=== PATIENT | male | born 1955 | race African-American/Black ===

== ENCOUNTER 2021-08-02 06:10 | Inpatient (IN) | payer OTHER, MEDICAID ==
[~2021-08-02] VITALS: Ht 185.4 cm; Wt 86.9 kg
[2021-08-02 07:24] LABS: Basophils # (auto) 0 10 ^3/uL (0-0.2); Basophils % (auto) 0.6 % (0.0-2.0); Eosinophils # (auto) 0 10 ^3/uL (0-0.8); Eosinophils % (auto) 0.1 % (0.0-7.0); Hematocrit 29.4 % (41.0-53.0); Lymphocytes # (auto) 0.7 10 ^3/uL (0.4-5.4); Lymphocytes % (auto) 12.1 % (10.0-50.0); Mean Corpuscular Hemoglobin 32.2 pg (28.0-32.0); Mean Corpuscular Volume 94.8 fL (80.0-100.0); Monocytes # (auto) 1.1 10 ^3/uL (0-1.3); Monocytes % (auto) 17.7 % (0.0-12.0); Neutrophils # (auto) 4.2 10 ^3/uL (1.6-8.6); Neutrophils % (auto) 69.5 % (37.0-80.0); Nucleated Red Blood Cells % 0.1 %; Red Cell Distribution Width 14.9 % (11.8-14.3)
[2021-08-02 07:38] LABS: Calcium 9.2 mg/dL (8.5-10.1); Magnesium 3.2 mg/dL (1.6-2.6); Potassium 5.1 mmol/L (3.5-5.1)
[2021-08-02 07:41] LABS: BUN/Creatinine Ratio 4.2; Bilirubin, Total 0.5 mg/dL (0.2-1.0); Total Protein 7.7 g/dL (6.4-8.2)
[2021-08-02] MEDS ORDERED: DEXTROSE (25%) 10 ML SYRG IV ONE (08:15)
[2021-08-02] MEDS ORDERED: MORPHINE SULFATE INJ 2 MG/ml SYRG IV ONE (10:30)
[2021-08-02] MEDS ORDERED: MORPHINE SULFATE INJ 2 MG/ml SYRG IV PRN ×2 (10:45)
[2021-08-02] MEDS ORDERED: NITROGLYCERIN 0.4 MG SL TAB SL PRN (10:45)
[2021-08-02 11:25] VITALS: BP 149/90
[2021-08-02] MEDS ORDERED: KETOROLAC TROMETH 30 MG/ML 1ML VIAL IV ONE (11:30)
[2021-08-02 11:46] LABS: Magnesium 3.1 mg/dL (1.6-2.6)
[2021-08-02 11:55] LABS: CRP High Sensitivity 5.69 mg/dL (< 0.3)
[2021-08-02 11:59] LABS: Thyroid Stimulating Hormone 0.27 uIU/mL (0.358-3.74)
[2021-08-02] MEDS: DexAMETHasone SOD PHOS 10MG/1ML VIAL INJ IV SCH (15:21)
[2021-08-02 17:00] VITALS: BP 152/88
[2021-08-02] MEDS: ALBUTEROL SULF HFA 90MCG INH 200DOSE IN PRN (19:08)
[2021-08-02] MEDS: ONDANSETRON HCL 4 MG/2 ML VIAL IV PRN (20:03)
[2021-08-02 22:00] VITALS: BP 145/92
[2021-08-03 05:00] VITALS: BP 148/85
[2021-08-03 05:45] LABS: Basophils # (auto) 0 10 ^3/uL (0-0.2); Basophils % (auto) 0.5 % (0.0-2.0); Eosinophils # (auto) 0 10 ^3/uL (0-0.8); Eosinophils % (auto) 0.1 % (0.0-7.0); Hematocrit 28.7 % (41.0-53.0); Hemoglobin 9.6 g/dL (13.5-17.5); Lymphocytes # (auto) 0.8 10 ^3/uL (0.4-5.4); Lymphocytes % (auto) 16.1 % (10.0-50.0); Mean Corpuscular Hemoglobin 32.5 pg (28.0-32.0); Mean Corpuscular Hgb Conc. 33.5 g/dL (32.0-36.0); Mean Corpuscular Volume 96.9 fL (80.0-100.0); Monocytes # (auto) 0.5 10 ^3/uL (0-1.3); Monocytes % (auto) 8.6 % (0.0-12.0); Neutrophils # (auto) 3.9 10 ^3/uL (1.6-8.6); Neutrophils % (auto) 74.7 % (37.0-80.0); Red Blood Cells 2.96 10^6/uL (4.5-5.90); Red Cell Distribution Width 15.6 % (11.8-14.3); White Blood Cell 5.3 10^3/uL (4.4-10.8)
[2021-08-03 06:05] LABS: Albumin 3.2 g/dL (3.4-5.0); Calcium 9.6 mg/dL (8.5-10.1)
[2021-08-03 06:07] LABS: BUN/Creatinine Ratio 4.7
[2021-08-03 06:09] LABS: Bilirubin, Total 0.5 mg/dL (0.2-1.0); Total Protein 7.7 g/dL (6.4-8.2)
[2021-08-03 06:16] LABS: Potassium 5.9 mmol/L (3.5-5.1)
[2021-08-03] MEDS ORDERED: SODIUM CHL 0.9% 1000 ML BAG XX ONE (07:00)
[2021-08-03 09:00] VITALS: BP 135/81
[2021-08-03] MEDS: DexAMETHasone SOD PHOS 10MG/1ML VIAL INJ IV SCH (10:01)
[2021-08-03] MEDS: AZITHROMYCIN 500MG/ 250ML 250 ML IV SCH (10:02)
[2021-08-03 13:00] VITALS: BP 145/82
[2021-08-03] MEDS: SODIUM ZIRCONIUM CYCL 10 GM PAK PO SCH ×2 (14:01→22:08)
[2021-08-03 17:00] VITALS: BP 139/78
[2021-08-03] MEDS ORDERED: EPOETIN ALFA-EPBX 10,000 UNIT/1ML VIAL SC ONE (21:00)
[2021-08-03 21:45] VITALS: BP 157/103
[2021-08-03] MEDS: hydrALAZINE HCL 20 MG/ML VL IV PRN (22:07)
[2021-08-04] MEDS: ONDANSETRON HCL 4 MG/2 ML VIAL IV PRN ×3 (00:01→11:05)
[2021-08-04 05:36] VITALS: BP 149/102
[2021-08-04] MEDS: SODIUM ZIRCONIUM CYCL 10 GM PAK PO SCH ×2 (06:23→14:00)
[2021-08-04 08:30] VITALS: BP 137/93
[2021-08-04] MEDS: CHOLECALCIFEROL (VITD3) 2,000 UNIT CAP/TAB PO SCH (10:00)
[2021-08-04] MEDS: ZINC SULFATE 220mg CAP or TAB PO SCH (10:00)
[2021-08-04] MEDS: AZITHROMYCIN 500MG/ 250ML 250 ML IV SCH (10:34)
[2021-08-04] MEDS: DexAMETHasone SOD PHOS 10MG/1ML VIAL INJ IV SCH (10:34)
[2021-08-04] MEDS: ASCORBIC ACID 1,000 MG TAB PO SCH (10:35)
[2021-08-04 11:07] LABS: Basophils # (auto) 0 10 ^3/uL (0-0.2); Basophils % (auto) 0.3 % (0.0-2.0); Eosinophils # (auto) 0 10 ^3/uL (0-0.8); Hematocrit 32.3 % (41.0-53.0); Hemoglobin 11.1 g/dL (13.5-17.5); Lymphocytes # (auto) 0.8 10 ^3/uL (0.4-5.4); Lymphocytes % (auto) 11.8 % (10.0-50.0); Mean Corpuscular Hemoglobin 32.8 pg (28.0-32.0); Mean Corpuscular Hgb Conc. 34.4 g/dL (32.0-36.0); Mean Corpuscular Volume 95.3 fL (80.0-100.0); Monocytes # (auto) 0.7 10 ^3/uL (0-1.3); Monocytes % (auto) 9.7 % (0.0-12.0); Neutrophils # (auto) 5.6 10 ^3/uL (1.6-8.6); Neutrophils % (auto) 78.2 % (37.0-80.0); Nucleated Red Blood Cells % 0.3 %; Red Blood Cells 3.39 10^6/uL (4.5-5.90); Red Cell Distribution Width 14.8 % (11.8-14.3); White Blood Cell 7.2 10^3/uL (4.4-10.8)
[2021-08-04 11:15] LABS: Albumin 3.6 g/dL (3.4-5.0); BUN/Creatinine Ratio 4.7; Calcium 9.4 mg/dL (8.5-10.1)
[2021-08-04 11:17] LABS: Bilirubin, Total 0.6 mg/dL (0.2-1.0); Total Protein 8.6 g/dL (6.4-8.2)
[2021-08-04 12:30] VITALS: BP 155/92
[2021-08-04] MEDS ORDERED: LORazepam 2MG/ML-1ML VIAL IV ONE (12:45)
[2021-08-04 16:34] VITALS: BP 138/75
[2021-08-04] MEDS ORDERED: EPOETIN ALFA-EPBX 10,000 UNIT/1ML VIAL SC ONE (21:00)
[2021-08-04 21:40] VITALS: BP 143/87
[2021-08-04 21:57] LABS: Urine Bacteria NONE SEEN /hpf (None Seen); Urine Blood Negative /uL (Negative); Urine Specific Gravity 1.015 (1.001-1.035); Urine WBC 4 /hpf (0 - 3)
[2021-08-04 22:14] LABS: Alcohol, Urine < 3.0 mg/dL (0-10); Amphetamine Screen, Urine NEGATIVE (NEGATIVE); Barbiturate Scree,Urine NEGATIVE (NEGATIVE); Benzodiazephine Screen, Urine NEGATIVE (NEGATIVE); Cannabinoid Screen, Urine NEGATIVE (NEGATIVE); Cocaine Screen, Urine NEGATIVE (NEGATIVE); Opiate Scree,Urine NEGATIVE (NEGATIVE); Phencyclidine Screen, Urine NEGATIVE (NEGATIVE)
[2021-08-05] VITALS (7 sets, daily range): BP systolic 142–161; BP diastolic 86–100
[2021-08-05] MEDS: ONDANSETRON HCL 4 MG/2 ML VIAL IV PRN (05:45)
[2021-08-05] MEDS: hydrALAZINE HCL 20 MG/ML VL IV PRN (05:45)
[2021-08-05] MEDS: ALBUTEROL SULF HFA 90MCG INH 200DOSE IN PRN ×2 (06:51→22:53)
[2021-08-05] MEDS: CHOLECALCIFEROL (VITD3) 2,000 UNIT CAP/TAB PO SCH (09:31)
[2021-08-05] MEDS: ASCORBIC ACID 1,000 MG TAB PO SCH (09:31)
[2021-08-05] MEDS: ZINC SULFATE 220mg CAP or TAB PO SCH (09:31)
[2021-08-05] MEDS: DexAMETHasone SOD PHOS 10MG/1ML VIAL INJ IV SCH (09:31)
[2021-08-05] MEDS: AZITHROMYCIN 500MG/ 250ML 250 ML IV SCH (09:31)
[2021-08-05] MEDS ORDERED: LORazepam 2MG/ML-1ML VIAL IM PRN (12:00)
[2021-08-05] MEDS: PANTOPRAZOLE 40 MG/10 ML VIAL INJ IV SCH ×2 (14:30→21:43)
[2021-08-06 05:00] VITALS: BP 158/97
[2021-08-06] MEDS: ALBUTEROL SULF HFA 90MCG INH 200DOSE IN PRN ×2 (06:35→19:24)
[2021-08-06] MEDS ORDERED: SODIUM CHL 0.9% 1000 ML BAG XX ONE (07:00)
[2021-08-06 07:41] VITALS: BP 120/72
[2021-08-06] MEDS: AZITHROMYCIN 500MG/ 250ML 250 ML IV SCH (08:30)
[2021-08-06] MEDS: ZINC SULFATE 220mg CAP or TAB PO SCH (08:31)
[2021-08-06] MEDS: PANTOPRAZOLE 40 MG/10 ML VIAL INJ IV SCH ×3 (08:31→21:18)
[2021-08-06] MEDS: CHOLECALCIFEROL (VITD3) 2,000 UNIT CAP/TAB PO SCH (08:32)
[2021-08-06] MEDS: ASCORBIC ACID 1,000 MG TAB PO SCH (08:32)
[2021-08-06] MEDS ORDERED: DexAMETHasone SOD PHOS 10MG/1ML VIAL INJ IV SCH (10:00)
[2021-08-06] MEDS ORDERED: PANTOPRAZOLE 40 MG TAB PO SCH (10:00)
[2021-08-06] MEDS: HALOPERIDOL LACTATE 5 MG/ML INJ VIAL IM PRN (10:57)
[2021-08-06 13:00] VITALS: BP 128/70
[2021-08-06 14:36] LABS: Basophils # (auto) 0.2 10 ^3/uL (0-0.2); Basophils % (auto) 2.8 % (0.0-2.0); Eosinophils # (auto) 0 10 ^3/uL (0-0.8); Hematocrit 31.9 % (41.0-53.0); Hemoglobin 10.9 g/dL (13.5-17.5); Lymphocytes # (auto) 0.9 10 ^3/uL (0.4-5.4); Lymphocytes % (auto) 11.3 % (10.0-50.0); Mean Corpuscular Hemoglobin 31.8 pg (28.0-32.0); Mean Corpuscular Hgb Conc. 34.1 g/dL (32.0-36.0); Mean Corpuscular Volume 93.3 fL (80.0-100.0); Monocytes % (auto) 12.7 % (0.0-12.0); Neutrophils # (auto) 5.7 10 ^3/uL (1.6-8.6); Neutrophils % (auto) 73.2 % (37.0-80.0); Nucleated Red Blood Cells % 0.2 %; Red Blood Cells 3.42 10^6/uL (4.5-5.90); Red Cell Distribution Width 14.4 % (11.8-14.3); White Blood Cell 7.8 10^3/uL (4.4-10.8)
[2021-08-06 14:43] LABS: INR 1.1 (0.9-1.15)
[2021-08-06 14:45] LABS: Calcium 10.2 mg/dL (8.5-10.1); Magnesium 3.5 mg/dL (1.6-2.6); Potassium 4.2 mmol/L (3.5-5.1)
[2021-08-06 14:48] LABS: BUN/Creatinine Ratio 5.4
[2021-08-06 14:56] LABS: Folate (Folic Acid) 5.99 ng/mL (5.38-24)
[2021-08-06] MEDS ORDERED: ALBUMIN 25% 100 ML IV PRN (15:15)
[2021-08-06] MEDS ORDERED: IOHEXOL 300 MG/ML 100ML BOTTLE IJ ONE (15:20)
[2021-08-06 16:40] VITALS: BP 139/82
[2021-08-06 22:00] VITALS: BP 121/77
[2021-08-07] MEDS: HALOPERIDOL LACTATE 5 MG/ML INJ VIAL IM PRN (04:53)
[2021-08-07 05:00] VITALS: BP 150/81
[2021-08-07] MEDS: AZITHROMYCIN 500MG/ 250ML 250 ML IV SCH (09:46)
[2021-08-07] MEDS: PANTOPRAZOLE 40 MG/10 ML VIAL INJ IV SCH ×2 (09:47→21:34)
[2021-08-07] MEDS: B-COMPLEX W/ C & FOLIC ACID(NEPHROVITE TAB) PO SCH (09:47)
[2021-08-07] MEDS: ZINC SULFATE 220mg CAP or TAB PO SCH (09:47)
[2021-08-07] MEDS: DexAMETHasone 4 MG TAB PO SCH (09:47)
[2021-08-07] MEDS: CHOLECALCIFEROL (VITD3) 2,000 UNIT CAP/TAB PO SCH (09:48)
[2021-08-07] MEDS: ASCORBIC ACID 1,000 MG TAB PO SCH (09:48)
[2021-08-07] MEDS ORDERED: AZITHROMYCIN 250 MG TAB PO SCH (10:00)
[2021-08-07 10:11] LABS: Basophils # (auto) 0 10 ^3/uL (0-0.2); Basophils % (auto) 0.2 % (0.0-2.0); Eosinophils # (auto) 0 10 ^3/uL (0-0.8); Eosinophils % (auto) 0.2 % (0.0-7.0); Hematocrit 33.6 % (41.0-53.0); Hemoglobin 11.3 g/dL (13.5-17.5); Lymphocytes # (auto) 0.9 10 ^3/uL (0.4-5.4); Lymphocytes % (auto) 13.1 % (10.0-50.0); Mean Corpuscular Hemoglobin 31.4 pg (28.0-32.0); Mean Corpuscular Hgb Conc. 33.7 g/dL (32.0-36.0); Mean Corpuscular Volume 93.3 fL (80.0-100.0); Monocytes # (auto) 0.9 10 ^3/uL (0-1.3); Neutrophils # (auto) 4.9 10 ^3/uL (1.6-8.6); Neutrophils % (auto) 72.5 % (37.0-80.0); Nucleated Red Blood Cells % 0.1 %; Red Cell Distribution Width 14.6 % (11.8-14.3); White Blood Cell 6.7 10^3/uL (4.4-10.8)
[2021-08-07 10:25] LABS: INR 1.13 (0.9-1.15)
[2021-08-07 10:30] LABS: Calcium 9.5 mg/dL (8.5-10.1); Magnesium 3.2 mg/dL (1.6-2.6); Potassium 4.2 mmol/L (3.5-5.1)
[2021-08-07 10:34] LABS: BUN/Creatinine Ratio 4.6
[2021-08-07 22:00] VITALS: BP 119/78
[2021-08-08] MEDS ORDERED: SODIUM CHL 0.9% 1000 ML BAG XX ONE (07:00)
[2021-08-08 09:00] VITALS: BP 155/91
[2021-08-08] MEDS: ASCORBIC ACID 1,000 MG TAB PO SCH (11:31)
[2021-08-08] MEDS: ZINC SULFATE 220mg CAP or TAB PO SCH (11:31)
[2021-08-08] MEDS: DexAMETHasone 4 MG TAB PO SCH (11:31)
[2021-08-08] MEDS: B-COMPLEX W/ C & FOLIC ACID(NEPHROVITE TAB) PO SCH (11:32)
[2021-08-08] MEDS: PANTOPRAZOLE 40 MG/10 ML VIAL INJ IV SCH ×2 (11:34→21:54)
[2021-08-08] MEDS: AZITHROMYCIN 500MG/ 250ML 250 ML IV SCH (11:35)
[2021-08-08] MEDS: CHOLECALCIFEROL (VITD3) 2,000 UNIT CAP/TAB PO SCH (11:41)
[2021-08-08 12:00] VITALS: BP 165/101
[2021-08-08] MEDS ORDERED: ALBUAER3 IN (14:02)
[2021-08-08] MEDS ORDERED: CHOL20007 PO (14:02)
[2021-08-08] MEDS ORDERED: ZINC220T6 PO (14:02)
[2021-08-08] MEDS ORDERED: AZIT500T PO (14:02)
[2021-08-08] MEDS ORDERED: ASCO500T11 PO (14:02)
[2021-08-08] MEDS ORDERED: PANT40TA2 PO (14:02)
[2021-08-08] MEDS ORDERED: DEX4T PO (14:02)
[2021-08-08] MEDS: hydrALAZINE HCL 20 MG/ML VL IV PRN (14:38)
[2021-08-08 17:00] VITALS: BP 165/102
[2021-08-08] MEDS ORDERED: cloNIDine HCL 0.1 MG TAB PO PRN (17:00)
[2021-08-08] MEDS ORDERED: CLON0.2T PO (18:22)
[2021-08-08] MEDS ORDERED: GABA300C10 PO (18:23)
[2021-08-08] MEDS ORDERED: METO-159 PO (18:24)
[2021-08-08] MEDS ORDERED: BACL10TA PO (18:24)
[2021-08-08] MEDS ORDERED: TERA5CAP42 PO (18:25)
[2021-08-08] MEDS ORDERED: ASPI-543 PO (18:25)
[2021-08-08] MEDS ORDERED: ROPI0.254 PO (18:26)
[2021-08-08] MEDS ORDERED: HYDR10TA26 PO (18:27)
[2021-08-08] MEDS ORDERED: APIX2.5T PO (18:28)
[2021-08-08] MEDS ORDERED: ROSU10TA16 PO (18:28)
[2021-08-08] MEDS ORDERED: OXY5T GT (18:29)
[2021-08-08] MEDS ORDERED: IOHEXOL 350 MG/ML 100ML IJ ONE (18:39)
[2021-08-08 21:45] VITALS: BP 158/97
[2021-08-09 04:57] VITALS: BP 133/88
[2021-08-09 05:57] LABS: Potassium 4.6 mmol/L (3.5-5.1)
[2021-08-09 06:05] LABS: BUN/Creatinine Ratio 5.4; Calcium 9.1 mg/dL (8.5-10.1)
[2021-08-09] MEDS: PANTOPRAZOLE 40 MG/10 ML VIAL INJ IV SCH (09:52)
[2021-08-09] MEDS: ZINC SULFATE 220mg CAP or TAB PO SCH (09:52)
[2021-08-09] MEDS: CHOLECALCIFEROL (VITD3) 2,000 UNIT CAP/TAB PO SCH (09:53)
[2021-08-09] MEDS: B-COMPLEX W/ C & FOLIC ACID(NEPHROVITE TAB) PO SCH (09:53)
[2021-08-09] MEDS: ASCORBIC ACID 1,000 MG TAB PO SCH (09:53)
[2021-08-09] MEDS: DexAMETHasone 4 MG TAB PO SCH (09:53)
[2021-08-09] MEDS ORDERED: DEX4T PO ×2 (10:49→10:50)
[2021-08-09] MEDS ORDERED: METOPROLOL TARTRATE 25 MG TAB PO ONE (11:00)
[2021-08-09 13:00] VITALS: BP 149/95
[2021-08-09 14:00] VITALS: BP 148/100
[2021-08-09] MEDS ORDERED: METOPROLOL TARTRATE 50 MG TAB PO SCH (22:00)
== END 2021-08-09 15:40 | disposition home or self-care (01) | DRG 177 ==
LOC: EDBD 06:10 → ER 06:10 → TELE 10:41 → TELE-EAST 16:24
PROVIDERS: ADMIT Registered Nurse; ATTEND Internal Medicine
PROC: 5A1D70Z Performance of Urinary Filtration, Intermittent, Less than 6 Hours Per Day (ICD-10-PCS; 2021-08-04)
PROC: 5A1D70Z Performance of Urinary Filtration, Intermittent, Less than 6 Hours Per Day (ICD-10-PCS; 2021-08-06)
PROC: 05H933Z Insertion of Infusion Device into Right Brachial Vein, Percutaneous Approach (ICD-10-PCS; 2021-08-06)
PROC: B54MZZA Ultrasonography of Right Upper Extremity Veins, Guidance (ICD-10-PCS; 2021-08-06)
PROC: 5A1D70Z Performance of Urinary Filtration, Intermittent, Less than 6 Hours Per Day (ICD-10-PCS; principal; 2021-08-09)
DX: U07.1 COVID-19 (principal); N18.6 End stage renal disease; I21.A1 Myocardial infarction type 2; I50.43 Acute on chronic combined systolic (congestive) and diastolic (congestive) heart failure; J12.82 Pneumonia due to coronavirus disease 2019; J96.01 Acute respiratory failure with hypoxia; G92.8 Other toxic encephalopathy; E46 Unspecified protein-calorie malnutrition; I13.2 Hypertensive heart and chronic kidney disease with heart failure and with stage 5 chronic kidney disease, or end stage renal disease; D63.1 Anemia in chronic kidney disease; E55.9 Vitamin D deficiency, unspecified; R00.0 Tachycardia, unspecified; E78.5 Hyperlipidemia, unspecified; E87.5 Hyperkalemia; I48.0 Paroxysmal atrial fibrillation; G62.9 Polyneuropathy, unspecified; Z53.20 Procedure and treatment not carried out because of patient's decision for unspecified reasons; Z99.2 Dependence on renal dialysis; Z88.1 Allergy status to other antibiotic agents; Z88.5 Allergy status to narcotic agent; Z91.19 Patient's noncompliance with other medical treatment and regimen
CPT/HCPCS: 36415; 36600; 70450; 71045; 71275; 74018; 74176; 74177; 76870; 80048; 80053; 80061; 80307; 81001; 82140; 82306; 82607; 82728; 82746; 82805; 83036; 83605; 83615; 83735; 83880; 84443; 84484; 85025; 85379; 85610; 86141; 90935; 93005; 93306; 93970; 94640; 96374; 96375; 97163; 99291; C9113; G0378; J1100; J1885; J2405

== ENCOUNTER 2021-09-03 14:28 | Emergency (ER) | payer OTHER, MEDICAID ==
[~2021-09-03] VITALS: Ht 182.9 cm; Wt 113.4 kg
[~2021-09-03 14:28] MED LIST: ALBUAER3 IN; APIX2.5T PO; ASCO500T11 PO; ASPI-543 PO; AZIT500T PO; BACL10TA PO; CHOL20007 PO; CLON0.2T PO; DEX4T PO; GABA300C10 PO; HYDR10TA26 PO; METO-159 PO; OXY5T GT; PANT40TA2 PO; ROPI0.254 PO; ROSU10TA16 PO; TERA5CAP42 PO; ZINC220T6 PO
[2021-09-03 15:58] LABS: Albumin 3.4 g/dL (3.4-5.0); BUN/Creatinine Ratio 6.4; Calcium 10.3 mg/dL (8.5-10.1); Potassium 3.9 mmol/L (3.5-5.1)
[2021-09-03 16:01] LABS: Bilirubin, Total 0.8 mg/dL (0.2-1.0); Total Protein 7.5 g/dL (6.4-8.2)
[2021-09-03 17:00] VITALS: BP 157/97
== END 2021-09-03 18:28 ==
LOC: ER 14:28 → EDBD 14:28 → ER 18:28
DX: F91.9 Conduct disorder, unspecified (principal); N18.6 End stage renal disease; J45.909 Unspecified asthma, uncomplicated; M10.9 Gout, unspecified; F17.210 Nicotine dependence, cigarettes, uncomplicated; Z95.1 Presence of aortocoronary bypass graft; Z79.2 Long term (current) use of antibiotics; Z79.82 Long term (current) use of aspirin; Z79.899 Other long term (current) drug therapy; Z88.8 Allergy status to other drugs, medicaments and biological substances
CPT/HCPCS: 36415; 71045; 80053

== ENCOUNTER 2021-09-09 21:06 | Emergency (ER) | payer OTHER, MEDICAID ==
[~2021-09-09] VITALS: Ht 188 cm; Wt 99.8 kg
[~2021-09-09 21:06] MED LIST changes: -CHOL20007 PO
[2021-09-09 21:37] VITALS: BP 119/53
[2021-09-09 22:56] LABS: Basophils # (auto) 0.1 10 ^3/uL (0-0.2); Basophils % (auto) 1.2 % (0.0-2.0); Eosinophils # (auto) 0.1 10 ^3/uL (0-0.8); Eosinophils % (auto) 0.8 % (0.0-7.0); Hematocrit 27.2 % (41.0-53.0); Hemoglobin 9.1 g/dL (13.5-17.5); Lymphocytes # (auto) 0.8 10 ^3/uL (0.4-5.4); Mean Corpuscular Hemoglobin 32.4 pg (28.0-32.0); Mean Corpuscular Hgb Conc. 33.5 g/dL (32.0-36.0); Mean Corpuscular Volume 96.8 fL (80.0-100.0); Monocytes # (auto) 0.4 10 ^3/uL (0-1.3); Monocytes % (auto) 5.9 % (0.0-12.0); Neutrophils # (auto) 5.5 10 ^3/uL (1.6-8.6); Neutrophils % (auto) 80.1 % (37.0-80.0); Red Blood Cells 2.81 10^6/uL (4.5-5.90); Red Cell Distribution Width 16.7 % (11.8-14.3); White Blood Cell 6.9 10^3/uL (4.4-10.8)
[2021-09-09 23:16] LABS: Calcium 9.2 mg/dL (8.5-10.1); Potassium 4.3 mmol/L (3.5-5.1)
[2021-09-09 23:20] LABS: BUN/Creatinine Ratio 5.9; Bilirubin, Total 0.8 mg/dL (0.2-1.0); Total Protein 7.4 g/dL (6.4-8.2)
== END 2021-09-10 07:03 | disposition left against medical advice (07) ==
LOC: ER 21:06 → EDBD 21:06 → EDUNIT# 21:06 → ER 09-10 07:03
DX: I89.0 Lymphedema, not elsewhere classified (principal); G25.81 Restless legs syndrome; I87.8 Other specified disorders of veins; I12.0 Hypertensive chronic kidney disease with stage 5 chronic kidney disease or end stage renal disease; N18.6 End stage renal disease; J45.909 Unspecified asthma, uncomplicated; I48.91 Unspecified atrial fibrillation; I25.2 Old myocardial infarction; M10.9 Gout, unspecified; F17.210 Nicotine dependence, cigarettes, uncomplicated; Z99.2 Dependence on renal dialysis; Z95.1 Presence of aortocoronary bypass graft; Z79.82 Long term (current) use of aspirin; Z79.899 Other long term (current) drug therapy; Z88.8 Allergy status to other drugs, medicaments and biological substances
CPT/HCPCS: 36415; 80053; 83880; 84484; 85025

== ENCOUNTER 2021-09-24 07:18 | Emergency (ER) | payer OTHER, MEDICAID ==
[~2021-09-24] VITALS: Ht 185.4 cm; Wt 102.0 kg
[2021-09-24 08:02] LABS: Basophils # (auto) 0 10 ^3/uL (0-0.2); Basophils % (auto) 0.5 % (0.0-2.0); Eosinophils # (auto) 0.1 10 ^3/uL (0-0.8); Eosinophils % (auto) 0.8 % (0.0-7.0); Hematocrit 31.1 % (41.0-53.0); Hemoglobin 10.3 g/dL (13.5-17.5); Lymphocytes % (auto) 15.8 % (10.0-50.0); Mean Corpuscular Volume 96.7 fL (80.0-100.0); Monocytes # (auto) 0.4 10 ^3/uL (0-1.3); Monocytes % (auto) 6.7 % (0.0-12.0); Neutrophils # (auto) 4.8 10 ^3/uL (1.6-8.6); Neutrophils % (auto) 76.2 % (37.0-80.0); Red Blood Cells 3.22 10^6/uL (4.5-5.90); Red Cell Distribution Width 16.6 % (11.8-14.3); White Blood Cell 6.3 10^3/uL (4.4-10.8)
[2021-09-24 08:20] LABS: Albumin 3.4 g/dL (3.4-5.0); BUN/Creatinine Ratio 4.8; Potassium 3.7 mmol/L (3.5-5.1)
[2021-09-24 08:23] LABS: Bilirubin, Total 1.1 mg/dL (0.2-1.0)
[2021-09-24] MEDS ORDERED: PRED1PAK9 PO (09:36)
[2021-09-24] MEDS ORDERED: methylPREDNISolone SOD SUCC 125 MG/2 ML VL IV ONE (09:45)
[2021-09-24 11:25] VITALS: BP 144/82
== END 2021-09-24 13:00 | disposition home or self-care (01) ==
LOC: EDBD 07:18 → ER 07:18
DX: I12.0 Hypertensive chronic kidney disease with stage 5 chronic kidney disease or end stage renal disease (principal); N18.6 End stage renal disease; I48.91 Unspecified atrial fibrillation; I25.2 Old myocardial infarction; J45.909 Unspecified asthma, uncomplicated; M10.9 Gout, unspecified; F17.210 Nicotine dependence, cigarettes, uncomplicated; Z99.2 Dependence on renal dialysis; Z95.1 Presence of aortocoronary bypass graft; Z79.82 Long term (current) use of aspirin; Z79.2 Long term (current) use of antibiotics; Z79.899 Other long term (current) drug therapy; Z88.8 Allergy status to other drugs, medicaments and biological substances
CPT/HCPCS: 36415; 71045; 80053; 83880; 84484; 85025; 96374; 99284; J2930